=== PATIENT | female | born 2000 | race Caucasian/White ===

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

== ENCOUNTER 2022-02-21 18:51 | Emergency (ER) | payer MEDICAID ==
[2022-02-21 18:58] VITALS: BP 134/74
[2022-02-21 19:34] LABS: RAPID STREP SCREEN Negative (Negative)
[2022-02-21] MEDS ORDERED: IBUPROFEN 800 MG TABLET PO STA (19:53)
--- NOTE | 2022-02-21 19:55 | ED Physician Documentation ---
PD HPI HEENT - Stated complaint Stated Complaint: SORE THROAT/BODY ACHES - Chief complaint Chief Complaint: Heent - History obtained from History obtained from: Patient, Family - History of Present Illness Timing - onset: Yesterday (Healthy 21-year-old got sick yesterday with sore throat and body aches. She denies runny nose or cough. No fevers. No known sick contacts. The main thing is the throat.) Review of Systems Constitutional: reports: Myalgias, Fatigue, Reviewed and negative Nose: denies: Rhinorrhea / runny nose Throat: reports: Sore throat Respiratory: denies: Dyspnea, Cough PD PAST MEDICAL HISTORY - Past Surgical History Past Surgical History: No - Present Medications Home Medications: Ambulatory Orders Medication Instructions Recorded Confirmed Amox/Clav 875/125 [Augmentin] 1 each PO Q12H #20 tablet 03/18/21 Ibuprofen [Motrin] 800 mg PO Q8H PRN #30 tablet 02/21/22 - Allergies Allergies/Adverse Reactions: Allergies Allergy/AdvReac Type Severity Reaction Status Date / Time No Known Drug Allergies Allergy Verified 02/21/22 18:55 - Social History Does the pt smoke?: No Smoking Status: Never smoker Does the pt drink ETOH?: No Does the pt have substance abuse?: No - Immunizations Immunizations are current?: Yes - POLST Patient has POLST: No PD ED PE NORMAL - Vitals Vital signs reviewed: Yes - General General: Alert and oriented X 3, No acute distress - HEENT HEENT: Other (Red tonsillar pillars but no tonsillar exudates or swelling, no anterior cervical adenopathy) - Neck Neck: Supple, no meningeal sign, No bony TTP - Cardiac Cardiac: RRR, No murmur - Respiratory Respiratory: No respiratory distress, Clear bilaterally - Abdomen Abdomen: Non tender - Derm Derm: Normal color, Warm and dry - Extremities Extremities: No edema, No calf tenderness / cord - Neuro Neuro: Alert and oriented X 3, Normal speech Results - Vitals Vitals: Vital Signs - 24 hr 02/21/22 18:55 Temperature 36.5 C Heart Rate 100 Respiratory 16 Rate Blood Pressure 134/74 H O2 Saturation 98 Oxygen O2 Source Room air - Labs Labs: Laboratory Tests 02/21/22 02/21/22 19:10 19:10 Nasal Adenovirus (PCR) NOT DETECTED Nasal B. parapertussis DNA (PCR) NOT DETECTED Nasal Coronavir 229E PCR NOT DETECTED Nasal Coronavir HKU1 PCR NOT DETECTED Nasal Coronavir NL63 PCR NOT DETECTED Nasal Coronavir OC43 PCR NOT DETECTED Nasal Enterovir/Rhinovir PCR NOT DETECTED Nasal Influenza B PCR NOT DETECTED Nasal Influenza A PCR NOT DETECTED Nasal Parainfluen 1 PCR NOT DETECTED Nasal Parainfluen 2 PCR NOT DETECTED Nasal Parainfluen 3 PCR NOT DETECTED Nasal Parainfluen 4 PCR NOT DETECTED Nasal RSV (PCR) NOT DETECTED Nasal B.pertussis DNA PCR NOT DETECTED Nasal C.pneumoniae (PCR) NOT DETECTED Phillip Human Metapneumo PCR NOT DETECTED Nasal M.pneumoniae (PCR) NOT DETECTED Nasal SARS-CoV-2 (PCR) NOT DETECTED Group A Strep Rapid Negative Departure - Departure Disposition: 01 Home, Self Care Clinical Impression: Viral pharyngitis Condition: Good Record reviewed to determine appropriate education?: Yes Instructions: ED Pharyngitis Viral Report Pending Prescriptions: Ibuprofen [Motrin] 800 mg PO Q8H PRN #30 tablet PRN Reason: PAIN &/OR FEVER Comments: As discussed, it is likely you have a viral sore throat, your strep test was negative. We will still culture your throat and if a bacterial pathogen is isolated we will call you and call in antibiotics. You have a COVID panel pending. I will call you later at [phone] to discuss results. Return if worse. You can take Tylenol and/or ibuprofen as needed for pain and the aches. Drink plenty of fluids. Forms: Activity restrictions Discharge Date/Time: 02/21/22 20:02
[2022-02-21 20:13] LABS: B. PARAPERTUSSIS- RESP PCR PAN NOT DETECTED; B. PERTUSSIS- RESP PCR PANEL NOT DETECTED; C. PNEUMONIAE- RESP PCR PANEL NOT DETECTED; CORONAVIRUS 229E-RESP PCR NOT DETECTED; CORONAVIRUS HKU1-RESP PCR NOT DETECTED; CORONAVIRUS NL63-RESP PCR NOT DETECTED; CORONAVIRUS OC43-RESP PCR NOT DETECTED; HUMAN METAPNEUMOVIRUS NOT DETECTED; INFLUENZA A- RESP PCR PANEL NOT DETECTED; INFLUENZA B - RESP PCR PANEL NOT DETECTED; M. PNEUMONIAE- RESP PCR PANEL NOT DETECTED; PARAINFLUENZA VIRUS 1 NOT DETECTED; PARAINFLUENZA VIRUS 2 NOT DETECTED; PARAINFLUENZA VIRUS 3 NOT DETECTED; PARAINFLUENZA VIRUS 4 NOT DETECTED; RHINOVIRUS/ENTEROVIRUS NOT DETECTED; RSV- RESP PCR PANEL NOT DETECTED; SARS-CoV-2 -RESP PCR PANEL NOT DETECTED
== END 2022-02-21 20:02 | disposition home or self-care (01) ==
LOC: ED 18:51
DX: J02.9 Acute pharyngitis, unspecified (principal); Z20.822 Contact with and (suspected) exposure to COVID-19
CPT/HCPCS: 87070; 87430; 87633; 99282; 99283; A9270

== ENCOUNTER 2023-03-12 08:36 | Emergency (ER) | payer MEDICAID, OTHER ==
[2023-03-12 09:01] VITALS: BP 118/55
--- NOTE | 2023-03-12 10:07 | ED Physician Documentation ---
PD HPI LOWER EXT INJURY - Stated complaint Stated Complaint: HIP PX - Chief complaint Chief Complaint: Ext Problem - History obtained from History obtained from: Patient - History of Present Illness PD HPI LOW EXT INJURY LOCATION: Right, Hip Type of injury: No: Fall, Twist Timing - onset: How many months ago (1) Timing - duration: Months (1) Timing - details: Gradual onset (no particular injury/fall. Onset of pain with movement and has continued. Tried OTC NSAIDs without improvement.), Still present, Waxing and waning Worsened by: Moving (flexion and rotation of hip hurts. The step off portion of gait.). No: Palpating Associated symptoms: No: Weakness, Numbness, Tingling Similar symptoms before: Has not had sx before Recently seen: Not recently seen Review of Systems Constitutional: denies: Fever, Chills GI: denies: Abdominal Pain : denies: Dysuria Skin: denies: Rash, Lesions Musculoskeletal: denies: Back pain, Extremity pain (pain from hip does not radiate down leg/thigh.) Neurologic: denies: Focal weakness, Numbness PD PAST MEDICAL HISTORY - Past Medical History Past Medical History: No Endocrine/Autoimmune: None Musculoskeletal: None - Past Surgical History Past Surgical History: No - Present Medications Home Medications: Ambulatory Orders Medication Instructions Recorded Confirmed Meloxicam [Mobic] 7.5 mg PO BID 10 Days #20 tablet 03/12/23 methocarbamoL [Robaxin] 500 mg PO Q6H PRN #20 tablet 03/12/23 - Allergies Allergies/Adverse Reactions: Allergies Allergy/AdvReac Type Severity Reaction Status Date / Time No Known Drug Allergies Allergy Verified 02/21/22 18:55 - Social History Does the pt smoke?: No Smoking Status: Never smoker Does the pt drink ETOH?: No Does the pt have substance abuse?: No - Immunizations Immunizations are current?: Yes - POLST Patient has POLST: No PD ED PE NORMAL - Vitals Vital signs reviewed: Yes - General General: Alert and oriented X 3, No acute distress, Well developed/nourished - Abdomen Abdomen: Soft, Non tender - Back Back: No spinal TTP - Derm Derm: Normal color, Warm and dry - Extremities Extremities: Other (right anterior hip/inguinal area with minimal tenderness. Does hurt with flexion and external rotation against resistance. No noted clicking with movement. ) Results - Vitals Vitals: Vital Signs - 24 hr 03/12/23 12:04 Respiratory 18 Rate Oxygen O2 Source Room air - Labs Labs: Laboratory Tests 03/12/23 11:18 Urine HCG, Qual NEGATIVE - Rads (name of study) right hip Relevant Findings:: Prelim report reviewed, EMP independent interpretation of test (no acute abnormality. Femoral head normal. ) PD Medical Decision Making - ED course Complexity details: reviewed results, considered differential (Gradual onset and ongoing pain in the right hip with movement. No abrupt injury. X-ray was done to ensure no obvious bone cyst, lesions, aseptic necrosis etc. The x-ray was normal. Presume tendinitis of the joint. Passive range of motion does not hurt so less likely arthritis per se.), d/w patient Departure - Departure Disposition: 01 Home, Self Care Clinical Impression: Hip tendonitis Qualifiers: Laterality: right Qualified Code(s): M76.891 - Other specified enthesopathies of right lower limb, excluding foot Condition: Stable Record reviewed to determine appropriate education?: Yes Instructions: Tendonitis and Tenosynovitis Follow-Up: [facility] [Provider Group] Prescriptions: Meloxicam [Mobic] 7.5 mg PO BID 10 Days #20 tablet methocarbamoL [Robaxin] 500 mg PO Q6H PRN #20 tablet PRN Reason: Spasms Comments: Your x-ray appears normal without any obvious bony abnormality. Clinically this sounds like some irritation or inflammation of the tendons of the hip muscles. (Hip strain). We can try treating this with a regular dosing of antihistamine. I prescribed meloxicam as its longer half-life so it can be Taken just twice daily. Take it regularly for the next 10 days with food. Robaxin muscle relaxant to use at nighttime before bed and during the day as well if needed for stiffness and spasm of the hip. Add Tylenol every 4-6 hours if needed for pain as well. Activity as tolerated. Follow-up with the orthopedic clinic if not improved well and resolved over the next week or so. I sent your prescriptions to the [facility] pharmacy in [place]. Forms: PCP List Discharge Date/Time: 03/12/23 12:36
[2023-03-12 11:51] LABS: HCG UR QUAL NEGATIVE
--- NOTE | 2023-03-12 12:30 | XRAY Report ---
PROCEDURE: Hip w/Pelvis 2-3V RT INDICATIONS: hip pain for a month TECHNIQUE: AP pelvis with lateral view(s) of the right hip(s). COMPARISON: None. FINDINGS: Bones: No fractures or dislocations. No suspicious bony lesions. Soft tissues: No suspicious soft tissue calcifications or masses. IMPRESSION: No right hip fracture or dislocation. No evidence of avascular necrosis of femoral head. Reviewed by: Tony Rubalcava MD on 03/12/2023 12:28 PM PDT Approved by: Tony Rubalcava MD on 03/12/2023 12:28 PM PDT Station ID: [id number]
== END 2023-03-12 12:36 | disposition home or self-care (01) ==
LOC: ED 08:36
DX: M76.891 Other specified enthesopathies of right lower limb, excluding foot (principal)
CPT/HCPCS: 81025; 99284

== ENCOUNTER 2023-08-20 01:00 | Outpatient (CLI) | payer SELFPAY | END 2023-08-20 23:59 | disposition EMS.NT | LOC: EMS 01:00 | DX: F41.9 Anxiety disorder, unspecified (principal) ==

== ENCOUNTER 2024-01-20 13:08 | Emergency (ER) | payer MEDICAID ==
[2024-01-20 13:55] LABS: BASOPHILS % (AUTO) 0.8 %; EOSINOPHILS % (AUTO) 2.3 %; HCT - HEMATOCRIT 41.1 % (37.0-47.0); HGB - HEMOGLOBIN 13.2 g/dL (12.0-16.0); LYMPHOCYTES % (AUTO) 23.3 %; MEAN CORPUSCULAR HEMOGLOBIN 28.6 pg (27.0-31.0); MEAN CORPUSCULAR HGB CONC 32.1 g/dL (32.0-36.0); MEAN PLATELET VOLUME 12.9 fL (7.9-10.8); MONOCYTES % (AUTO) 7.6 %; NEUTROPHILS % (AUTO) 65.7 %; PLT - PLATELET COUNT 184 10^3/uL (130-450); RED BLOOD COUNT 4.62 10^6/uL (4.20-5.40); WHITE BLOOD COUNT 7.2 x10^3/uL (4.8-10.8)
[2024-01-20 13:58] LABS: ABNORMAL LYMPHS % (MANUAL) 0 %; BAND NEUTROPHILS % (MANUAL) 0 %
[2024-01-20 14:04] LABS: ALBUMIN 4.4 g/dL (3.2-5.5); ALBUMIN/GLOBULIN RATIO 1.7 (1.0-2.2); ALKALINE PHOSPHATASE 41 IU/L (42-121); ALT ALANINE AMINOTRANSFERASE 8 IU/L (10-60); AST ASPARTATE AMINOTRANSFERASE 12 IU/L (10-42); BILIRUBIN,TOTAL 0.9 mg/dL (0.2-1.0); BUN - BLOOD UREA NITROGEN 14 mg/dL (6-20); CALCIUM 9.5 mg/dL (8.5-10.3); CARBON DIOXIDE - CO2 25 mmol/L (21-32); CHLORIDE 107 mmol/L (101-111); CREATININE 0.8 mg/dL (0.6-1.3); GFR - MDRD 91 (>89); GLUCOSE 97 mg/dL (74-104); POTASSIUM 3.9 mmol/L (3.5-4.5); SODIUM 138 mmol/L (135-145)
[2024-01-20 14:08] LABS: LIPASE < 10 U/L (11-82)
[2024-01-20 14:23] LABS: DIFFERENTIAL COMMENT MANUAL DIFFERENTIAL; EOSINOPHILS # (MANUAL) 0.1 10^3/uL (0-0.7); LYMPHOCYTES # (MANUAL) 1.4 10^3/uL (1.5-3.5); LYMPHOCYTES % (MANUAL) 13 %; MONOCYTES # (MANUAL) 0.6 10^3/uL (0.0-1.0); NEUTROPHILS # (MANUAL) 5.1 10^3/uL (1.5-6.6); PLATELET ESTIMATE, MANUAL NORMAL (130-450,000) (NORMAL); PLATELET MORPHOLOGY NORMAL APPEARANCE (NORMAL); RBC MORPHOLOGY (MULTIPLE) NORMAL APPEARANCE (NORMAL); REACTIVE LYMPHS % (MANUAL) 6 %
--- NOTE | 2024-01-20 17:52 | ED Physician Documentation ---
PD HPI FEMALE - Stated complaint Stated Complaint: LOW ABD PX,SPOTTING - Chief complaint Chief Complaint: Abd Pain - Additional information Additional information: 31 female presents emergency department for what she describes as cramps. Patient says that she has very inconsistent periods last period was sometime in November menses started today and she has been experiencing cramps on and off with no vaginal bleeding. She denies any chance no new sexual partners no urinary urgency or dysuria. PD PAST MEDICAL HISTORY - Past Medical History Past Medical History: No Endocrine/Autoimmune: None Musculoskeletal: None - Past Surgical History Past Surgical History: No - Present Medications Home Medications: Ambulatory Orders Medication Instructions Recorded Confirmed Meloxicam [Mobic] 7.5 mg PO BID 10 Days #20 tablet 03/12/23 methocarbamoL [Robaxin] 500 mg PO Q6H PRN #20 tablet 03/12/23 - Allergies Allergies/Adverse Reactions: Allergies Allergy/AdvReac Type Severity Reaction Status Date / Time No Known Drug Allergies Allergy Verified 02/21/22 18:55 - Social History Does the pt smoke?: Yes Smoking Status: Current every day smoker Does the pt drink ETOH?: No Does the pt have substance abuse?: No Substance Use and Type: Marijuana - Immunizations Immunizations are current?: Yes - POLST Patient has POLST: No PD ED PE NORMAL - Vitals Vital signs reviewed: Yes - General General: Alert and oriented X 3, No acute distress, Well developed/nourished - Abdomen Abdomen: Normal bowel sounds, Soft, Non distended, No organomegaly, Other (Suprapubic tenderness) - Back Back: No CVA TTP - Derm Derm: Normal color, Warm and dry, No rash - Psych Psych: Normal mood Results - Vitals Vitals: Vital Signs - 24 hr 01/20/24 01/20/24 01/20/24 13:17 19:21 21:00 Temperature 36.4 C L Heart Rate 99 70 64 Respiratory 16 16 16 Rate Blood Pressure 117/80 103/68 138/95 H O2 Saturation 99 99 97 Oxygen O2 Source Room air - Labs Labs: Laboratory Tests 01/20/24 01/20/24 01/20/24 13:41 13:41 17:40 WBC 7.2 RBC 4.62 Hgb 13.2 Hct 41.1 MCV 89.0 MCH 28.6 MCHC 32.1 RDW 14.0 Plt Count 184 MPV 12.9 H Neut # (Auto) Not Reportable Lymph # (Auto) Not Reportable [place]acy # (Auto) Not Reportable Eos # (Auto) Not Reportable Baso # (Auto) Not Reportable Absolute Nucleated RBC Not Reportable Total Counted 100 Band Neuts % (Manual) 0 Reactive Lymphs % (Man) 6 Abnorm Lymph % (Manual) 0 Nucleated RBC % Not Reportable Neutrophils # (Manual) 5.1 Lymphocytes # (Manual) 1.4 L Monocytes # (Manual) 0.6 Eosinophils # (Manual) 0.1 Basophils # (Manual) 0.0 Differential Comment MANUAL DIFFERENTIAL Platelet Estimate NORMAL (130-450,000) Platelet Morphology NORMAL APPEARANCE RBC Morph Micro Appear NORMAL APPEARANCE Sodium 138 Potassium 3.9 Chloride 107 Carbon Dioxide 25 Anion Gap 6.0 BUN 14 Creatinine 0.8 Estimated GFR (MDRD) 91 Glucose 97 Calcium 9.5 Total Bilirubin 0.9 AST 12 ALT 8 L Alkaline Phosphatase 41 L Total Protein 7.0 Albumin 4.4 Globulin 2.6 Albumin/Globulin Ratio 1.7 Lipase < 10 L Urine Color DARK YELLOW Urine Clarity CLEAR Urine pH 6.5 Ur Specific Atco 1.020 Urine Protein TRACE Urine Glucose (UA) NEGATIVE Urine Ketones NEGATIVE Urine Occult Blood LARGE H Urine Nitrite NEGATIVE Urine Bilirubin SMALL H Urine Urobilinogen 0.2 (NORMAL) Ur Leukocyte Esterase NEGATIVE Urine RBC 11-25 H Urine WBC 4-5 Ur Squamous Epith Cells MOD Squamous H Urine Bacteria Few Urine Mucus Marked Strands Ur Microscopic Review INDICATED Urine Culture Comments NOT INDICATED Urine HCG, Qual NEGATIVE - Rads (name of study) pelvic us OB Relevant Findings:: Final report received, EMP independent interpretation of test, Other (2.4 cm right ovarian cyst ) PD Medical Decision Making - ED course ED course: 31-year-old female presents emergency department for suprapubic tenderness differentials include but are not limited to menses, ovarian torsion, UTI, atypical appendicitis. Labs are complete for further evaluation of patient's suprapubic tenderness and pain and she has no elevated white count electrolytes are found to be unremarkable urinalysis does not have any leukocytes or nitrites making me less concerned or suspicious of possible urinary tract infection. hCG is also found to be negative.For further evaluation of her pelvic pain a ultrasound was complete and she was found to have a 2.4 right ovarian hemorrhagic cyst. Patient told to follow-up with her primary care provider for further evaluation of this with the woman's clinic. She was given referral to the women's clinic and ER return precautions given all questions answered patient safe for discharge patient told to manage her pain with Tylenol ibuprofen and to consider going on control to help with more consistent menses as well as menorrhea. Departure - Departure Disposition: 01 Home, Self Care Clinical Impression: Ovarian cyst Qualifiers: Laterality: unspecified laterality Qualified Code(s): N83.209 - Unspecified ovarian cyst, unspecified side Instructions: Cysts Ovarian Follow-Up: Myrtle Chamorro MD [Provider Admit Priv/Credential] - Comments: Thank you for trusting us with your care. We have found that you have very small ovarian cyst we recommend following up with [facility] outpatient for further evaluation possible repeat ultrasound in 6 to 12 weeks possibly even longer given that your ovarian cyst was only about 2 and half centimeters. Please come back to the ER for having any severe worsening symptoms to the point where he is causing you to vomit, fevers chills, or any other concerning emergent symptoms. Forms: PCP List Discharge Date/Time: 01/20/24 21:31
[2024-01-20 17:57] LABS: BILIRUBIN,URINE SMALL (NEGATIVE); GLUCOSE, URINE (UA) NEGATIVE (NEGATIVE); KETONES,URINE (UA) NEGATIVE (NEGATIVE); LEUKOCYTE ESTERASE, URINE NEGATIVE (NEGATIVE); NITRITE,URINE NEGATIVE (NEGATIVE); OCCULT BLOOD,URINE LARGE (NEGATIVE); PH,URINE 6.5 PH (5.0-7.5); PROTEIN,URINE TRACE mg/dL (NEGATIVE); UROBILINOGEN,URINE 0.2 (NORMAL) E.U./dL (NORMAL)
[2024-01-20 17:58] LABS: CLARITY,URINE CLEAR (CLEAR); HCG UR QUAL NEGATIVE
[2024-01-20] MEDS: ACETAMINOPHEN 325 MG TABLET PO STA (18:02)
[2024-01-20 18:04] LABS: BACTERIA,URINE Few /HPF (None Seen); MUCUS,URINE Marked Strands; SQUAMOUS EPITHELIAL CELL,UR MOD Squamous (<= Few)
[2024-01-20 21:36] VITALS: BP 138/95; O2SAT 97
--- NOTE | 2024-01-20 21:52 | Ultrasound Report ---
PROCEDURE: Pelvic w/Doppler Complete INDICATIONS: pelvic pain TECHNIQUE: Real-time scanning was performed of the pelvic organs, with image documentation. COMPARISON: None. FINDINGS: Uterus: Uterus is anteverted and normal in size at 7.4 x 3.7 x 4.5 cm. The myometrium is heterogene ous. The endometrium measures 9.5 mm in combined thickness. Ovaries: The right ovary measures 3.4 x 2.3 x 3.3 cm, with a calculated ovarian volume of 13.8 cc. The left ovary measures 2.9 x 2.6 x 2.9 cm, with a calculated ovarian volume of 11.2 cc. The ovaries have a normal sonographic appearance. Less than 12 follicles can be seen in each ovary. No adnexal masses are seen. No cystic lesions measuring greater than 3 cm. Right ovarian thick-walled 2.4 x 2.2 x 1.9 cm cyst is most likely a regressing physiologic cyst. Normal Doppler flow seen to each ovary. Other: No pathologic free abdominal or pelvic fluid. IMPRESSION: 1.No sonographic signs of ovarian torsion. 2.Probable 2.4 cm right ovarian regressing physiologic cyst. Reviewed by: Bogdan Travis MD on 01/20/2024 9:51 PM PDT Approved by: Bogdan Travis MD on 01/20/2024 9:51 PM PDT Station ID: [id number]
== END 2024-01-20 21:31 | disposition home or self-care (01) ==
LOC: ED 13:08
DX: N83.201 Unspecified ovarian cyst, right side (principal); F17.200 Nicotine dependence, unspecified, uncomplicated; Z79.899 Other long term (current) drug therapy
CPT/HCPCS: 36415; 76856; 80053; 81001; 81025; 83690; 85025; 93975; 99284; A9270; 81003; 87086

== ENCOUNTER 2024-02-05 06:21 | Emergency (ER) | payer MEDICAID ==
--- NOTE | 2024-02-05 07:24 | ED Physician Documentation ---
History of Present Illness - Stated complaint Stated Complaint: RT LEG TINGLING/NUMBNESS - Chief complaint Chief Complaint: Trauma Ext - History obtained from History obtained from: Patient - Additonal information Additional information: The patient comes to the emergency department chief complaint of sciatic pain on the right. She states she has had this for a long time and just keeps flaring up. She has a pain that goes down through her buttock into her right hip area and goes down to about her knee. She states sometimes she gets that tingling sensation. The patient states that she did not have an injury to trigger this. She states that just started happening and that the pain has become consistent now. She has been taking ibuprofen at home but it does not seem to be helping. She says she seen her primary care physician but they have not made any recommendations. No other complaints at this time. The patient denies any loss of bowel or bladder control. No fevers. PD PAST MEDICAL HISTORY - Past Medical History Endocrine/Autoimmune: None Musculoskeletal: None - Past Surgical History Past Surgical History: No - Present Medications Home Medications: Ambulatory Orders Medication Instructions Recorded Confirmed Meloxicam [Mobic] 7.5 mg PO BID 10 Days #20 tablet 03/12/23 methocarbamoL [Robaxin] 500 mg PO Q6H PRN #20 tablet 03/12/23 Gabapentin [Neurontin] 300 mg PO TID #15 cap 02/05/24 HYDROcod/ACETAM 5/325 [[place] 5/325] 1 - 2 tablet PO Q6H PRN #5 tablet 02/05/24 predniSONE [Deltasone] 10 mg PO [id number] #42 tab 02/05/24 - Allergies Allergies/Adverse Reactions: Allergies Allergy/AdvReac Type Severity Reaction Status Date / Time No Known Drug Allergies Allergy Verified 02/21/22 18:55 - Social History Does the pt smoke?: Yes Smoking Status: Current every day smoker Does the pt drink ETOH?: No Does the pt have substance abuse?: No - Immunizations Immunizations are current?: Yes - POLST Patient has POLST: No PD ED PE NORMAL - Vitals Vital signs reviewed: Yes - General General: Alert and oriented X 3, No acute distress, Well developed/nourished - HEENT HEENT: Atraumatic, EOMI, Moist mucous membranes - Neck Neck: Supple, no meningeal sign - Cardiac Cardiac: Strong equal pulses - Respiratory Respiratory: No respiratory distress - Abdomen Abdomen: Soft, Non tender, Non distended - Back Back: No spinal TTP - Derm Derm: Normal color, Warm and dry, No rash - Extremities Extremities: No deformity, Other (Mild tenderness palpation over sciatic joint. Mild pain with range of motion of right hip. Mild tenderness across right inguinal ligaments.) - Neuro Neuro: No motor deficit, No sensory deficit, Other (Alert, grossly intact) - Psych Psych: Normal mood, Normal affect Results - Vitals Vitals: Vital Signs - 24 hr 02/05/24 06:29 Temperature 36.3 C L Heart Rate 101 H Respiratory 14 Rate Blood Pressure 126/71 O2 Saturation 99 Oxygen O2 Source Room air PD Medical Decision Making - ED course Complexity details: considered differential, d/w patient ED course: I discussed with the patient that at this point in time, she does not have any signs or symptoms of an emergent cause or complication of her back pain. She has had imaging with x-rays on 2 occasions previously for the same symptoms and states she has seen a primary care physician. I discussed with her that an MRI would probably be helpful if symptoms are ongoing and possibly PT referral. Both of these would be done by her primary care physician as an outpatient. The patient states that she does not think PT is for her because she has already tried stretching and exercising and it does not work. I have advised her that I will treat her symptomatically here and give her a short course of medication as an outpatient to try to break the cycle of her sciatic pain. However, for this chronic condition she will need to follow-up with her primary care physician to discuss further management. I have ordered Decadron, gabapentin, and a dose of Vicodin here in the emergency department as the patient is already taken ibuprofen today. We discussed the usual indications for return. Departure - Departure Disposition: Home, Self Care Clinical Impression: Sciatica Qualifiers: Laterality: right Qualified Code(s): M54.31 - Sciatica, right side Condition: Stable Instructions: ED Sciatica Prescriptions: predniSONE [Deltasone] 10 mg PO [id number] #42 tab Gabapentin [Neurontin] 300 mg PO TID #15 cap HYDROcod/ACETAM 5/325 [[place] 5/325] 1 - 2 tablet PO Q6H PRN #5 tablet PRN Reason: Pain Comments: It is important that you follow closely with your primary doctor regarding your ongoing sciatica. A prescription for some medication to help with this has been electronically transmitted to the [email or web address] pharmacy in [place]. However, it is very important that you address further pain needs with your primary doctor. Please make the next available appointment to be seen by them. Forms: PCP List
[2024-02-05] MEDS: DEXAMETHASONE 10 MG/ML VIAL IM STA (07:36)
[2024-02-05] MEDS: HYDROcod/ACETAM 5/325 MG TABLET PO STA (07:36)
[2024-02-05] MEDS: GABAPENTIN 100 MG CAPSULE PO STA (07:37)
[2024-02-05 08:20] VITALS: BP 107/68; O2SAT 98
== END 2024-02-05 08:07 | disposition home or self-care (01) ==
LOC: ED 06:21
DX: M54.31 Sciatica, right side (principal); F17.200 Nicotine dependence, unspecified, uncomplicated
CPT/HCPCS: 96372; 99283; 99284; A9270

== ENCOUNTER 2024-04-11 16:50 | Emergency (ER) | payer MEDICAID ==
[2024-04-11 17:08] VITALS: BP 110/80; O2SAT 96
--- NOTE | 2024-04-11 18:11 | ED Physician Documentation ---
History of Present Illness - Stated complaint Stated Complaint: RT SIDE HIP PX - Chief complaint Chief Complaint: Ext Problem - Additonal information Additional information: 23-year-old female presents emergency department for ongoing right hip pain. Patient has had quite extensive outpatient workup and multiple ER visits for this ongoing right hip pain. She had an MRI a couple months ago and it showed osseous prominence on the femoral head of the right hip she has a repeat MRI scheduled for April. She said that she is been taking 500 mg of Tylenol at home with little to no relief and feels like it is more swollen than normal w hich is what brings her into the emergency department. No fevers or chills. PD PAST MEDICAL HISTORY - Past Medical History Past Medical History: No Endocrine/Autoimmune: None Musculoskeletal: None - Past Surgical History Past Surgical History: No - Present Medications Home Medications: Ambulatory Orders Medication Instructions Recorded Confirmed Meloxicam [Mobic] 7.5 mg PO BID 10 Days #20 tablet 03/12/23 methocarbamoL [Robaxin] 500 mg PO Q6H PRN #20 tablet 03/12/23 Gabapentin [Neurontin] 300 mg PO TID #15 cap 02/05/24 HYDROcod/ACETAM 5/325 [[place] 5/325] 1 - 2 tablet PO Q6H PRN #5 tablet 02/05/24 predniSONE [Deltasone] 10 mg PO [id number] #42 tab 02/05/24 - Allergies Allergies/Adverse Reactions: Allergies Allergy/AdvReac Type Severity Reaction Status Date / Time No Known Drug Allergies Allergy Verified 04/11/24 18:09 - Social History Does the pt smoke?: Yes Smoking Status: Current every day smoker Does the pt drink ETOH?: No Does the pt have substance abuse?: No - Immunizations Immunizations are current?: Yes - POLST Patient has POLST: No PD ED PE NORMAL - Vitals Vital signs reviewed: Yes - General General: Alert and oriented X 3, No acute distress, Well developed/nourished - Back Back: No CVA TTP, No spinal TTP - Derm Derm: Normal color, Warm and dry, No rash - Extremities Extremities: No deformity, No tenderness to palpate, Normal ROM s pain, No edema, No calf tenderness / cord Results - Vitals Vitals: Vital Signs - 24 hr 04/11/24 16:57 Temperature 36.9 C Heart Rate 100 Respiratory 18 Rate Blood Pressure 110/80 O2 Saturation 96 Oxygen O2 Source Room air PD Medical Decision Making - ED course ED course: 23-year-old female presents emergency department for chronic right hip pain. Patient says that she is feeling like it was more swollen than it normally is upon my visual examination the hips appear to be equal and symmetrical no swelling no erythema it is not warm to the touch. Patient says that she did not want opioids or narcotics but her main goal is just figure out a way to help manage her pain until she is able to follow-up with her orthopedic surgeon orthopedic doctor at [facility]. She was given a 30 mg Toradol injection here in the emergency department and 1000 mg of Tylenol and said that she had significant improvement of her pain and symptoms. She was also told to consider doing lidocaine patches topically or diclofenac cream over her right hip. She is given return precautions she is told to follow-up with her Ortho doc for ongoing chronic pain medications if needed all questions answered patient greatly appreciates her care and appreciates how to manage her pain and symptoms at home better with the regimen that we had discussed. Departure - Departure Disposition: 01 Home, Self Care Clinical Impression: Right hip pain Instructions: Lidocaine dermal patch, Naproxen and naproxen sodium oral immediate-release tablets, Diclofenac skin gel Comments: Thank you for trusting us with your care. Going home you can take 1000 mg of Tylenol every 8 hours for pain and discomfort of your right hip I would also consider switching from ibuprofen to Aleve as you can take 500 mg every 12 hours and you do not have to worry about dosing and as frequently as ibuprofen. You can buy [id number] diclofenac also known as Voltaren gel to apply over your right hip to help with pain and inflammation apply ice 20 minutes at a time as well as heat 20 minutes at a time for chronic pain. Please follow-up with your orthopedic surgeon for further evaluation come back in if you start develop any fevers or chills or any other emergent concerns. Forms: PCP List Discharge Date/Time: 04/11/24 19:00
[2024-04-11] MEDS: ACETAMINOPHEN 500 MG TABLET PO STA (18:45)
[2024-04-11] MEDS: KETOROLAC 30 MG/ML VIAL IM STA (18:48)
== END 2024-04-11 19:00 | disposition home or self-care (01) ==
LOC: ED 16:50
DX: M25.551 Pain in right hip (principal); F17.200 Nicotine dependence, unspecified, uncomplicated
CPT/HCPCS: 96372; 99283; A9270